=== PATIENT | female | born 1955 | race African-American/Black ===

== ENCOUNTER 2017-08-08 22:29 | Emergency (ER) | payer MEDICAID ==
[~2017-08-08] VITALS: Ht 162.6 cm; Wt 91.2 kg
[2017-08-08 23:33] VITALS: BP 141/50
[2017-08-09] MEDS ORDERED: IBUPROFEN 600 MG TAB PO ONE ×2 (00:30→00:48)
== END 2017-08-09 01:31 | disposition home or self-care (01) ==
LOC: ER 22:34
DX: S00.83XA Contusion of other part of head, initial encounter (principal); I10 Essential (primary) hypertension; E11.9 Type 2 diabetes mellitus without complications; Z90.710 Acquired absence of both cervix and uterus; W00.2XXA Other fall from one level to another due to ice and snow, initial encounter; Y93.89 Activity, other specified; Y92.89 Other specified places as the place of occurrence of the external cause; Y99.8 Other external cause status
CPT/HCPCS: 70450